=== PATIENT | female | born 1940 | race Caucasian/White ===

== ENCOUNTER 2016-10-26 08:27 | Outpatient (CLI) | payer MEDICARE, OTHER ==
[2016-10-26 09:23] LABS: eGFR (African) > 60; eGFR (Non-African) > 60
== END 2016-10-26 08:30 ==
LOC: LAB 08:27
PROVIDERS: ATTEND Internal Medicine
DX: E11.65 Type 2 diabetes mellitus with hyperglycemia (principal); E78.00 Pure hypercholesterolemia, unspecified; E03.9 Hypothyroidism, unspecified
CPT/HCPCS: 36415; 80053; 80061; 83036; 84439; 84443

== ENCOUNTER 2017-05-12 08:14 | Outpatient (CLI) | payer MEDICARE, OTHER ==
[2017-05-12 09:18] LABS: BASOPHILS % 0.9 (0.0-1.5); EOSINOPHILS % 2.5 % (0.0-6.8); MEAN CORPUSCULAR HEMOGLOBIN 30.7 pg (28.0-34.0); MEAN CORPUSCULAR VOLUME 92.7 fl (80.0-100.0); MONOCYTES % 5.5 % (0.0-11.0); NEUTROPHILS # 2.4 # k/uL (1.4-7.7); eGFR (African) > 60; eGFR (Non-African) > 60
== END 2017-05-12 08:15 ==
LOC: LAB 08:14
PROVIDERS: ATTEND Internal Medicine
DX: I10 Essential (primary) hypertension (principal); E78.00 Pure hypercholesterolemia, unspecified; E11.9 Type 2 diabetes mellitus without complications; E03.9 Hypothyroidism, unspecified
CPT/HCPCS: 36415; 80053; 80061; 82043; 83036; 84439; 84443; 85025

== ENCOUNTER 2017-09-02 13:36 | Outpatient (CLI) | payer MEDICARE, OTHER | END 2017-09-02 13:38 | LOC: POD 13:36 | PROVIDERS: ATTEND Podiatrist | DX: B35.1 Tinea unguium (principal); M79.674 Pain in right toe(s); M79.675 Pain in left toe(s); E11.9 Type 2 diabetes mellitus without complications | CPT/HCPCS: G0463 ==

== ENCOUNTER 2017-11-10 08:52 | Outpatient (CLI) | payer MEDICARE, OTHER ==
[2017-11-10 09:11] LABS: BASOPHILS % 0.4 (0.0-1.5); EOSINOPHILS % 3.2 % (0.0-6.8); MEAN CORPUSCULAR HEMOGLOBIN 31.2 pg (28.0-34.0); MEAN CORPUSCULAR VOLUME 96.2 fl (80.0-100.0); MONOCYTES % 5.5 % (0.0-11.0); NEUTROPHILS # 3.4 # k/uL (1.4-7.7)
[2017-11-10 09:44] LABS: eGFR (African) > 60; eGFR (Non-African) > 60
== END 2017-11-10 08:53 ==
LOC: LAB 08:52
PROVIDERS: ATTEND Internal Medicine
DX: I10 Essential (primary) hypertension (principal); E78.00 Pure hypercholesterolemia, unspecified; E11.65 Type 2 diabetes mellitus with hyperglycemia
CPT/HCPCS: 36415; 80053; 80061; 82043; 83036; 84439; 84443; 85025

== ENCOUNTER 2018-05-16 08:19 | Outpatient (CLI) | payer MEDICARE, OTHER ==
[2018-05-16 08:44] LABS: BASOPHILS % 0.3 (0.0-1.5); EOSINOPHILS % 3.4 % (0.0-6.8); MONOCYTES % 5.3 % (0.0-11.0); NEUTROPHILS # 2.8 # k/uL (1.4-7.7)
[2018-05-16 09:11] LABS: eGFR (Non-African) > 60
== END 2018-05-16 08:20 ==
LOC: LAB 08:19
PROVIDERS: ATTEND Internal Medicine
DX: I10 Essential (primary) hypertension (principal); E78.00 Pure hypercholesterolemia, unspecified; E11.65 Type 2 diabetes mellitus with hyperglycemia
CPT/HCPCS: 36415; 80053; 80061; 82043; 83036; 84439; 84443; 85025

== ENCOUNTER 2019-05-15 07:44 | Outpatient (CLI) | payer OTHER ==
[2019-05-15 08:15] LABS: A1C 6.6 % (<5.7)
[2019-05-15 08:51] LABS: HDL 48 mg/dL (>40); eGFR (Non-African) > 60
== END 2019-05-15 07:49 ==
LOC: LAB 07:44
PROVIDERS: ATTEND Internal Medicine
DX: I10 Essential (primary) hypertension (principal); E78.00 Pure hypercholesterolemia, unspecified; E11.9 Type 2 diabetes mellitus without complications; E03.9 Hypothyroidism, unspecified
CPT/HCPCS: 36415; 80053; 80061; 82043; 83036; 84439; 84443